=== PATIENT | male | born 1975 | race Caucasian/White ===

== ENCOUNTER 2023-06-13 09:12 | Observation (INO) ==
--- NOTE | 2023-05-18 10:24 | PAT Medication Instructions ---
Medication Instructions Date of Service May 18, 2023 Home Medications baclofen 10 mg tablet 10 mg PO DAILY PRN bupropion HCl 150 mg tablet,12 hr sustained-release (Wellbutrin SR) 150 mg PO BID gabapentin 400 mg capsule 400 mg PO TID meloxicam 15 mg tablet 15 mg PO QAM omeprazole 20 mg tablet,delayed release 20 mg PO QAM Continue as directed baclofen 10 mg tablet 10 mg PO DAILY PRN(if needed) ASK your surgeon for instructions meloxicam 15 mg tablet 15 mg PO QAM Take morning of surgery With a small sip of water, OTHERWISE NOTHING TO EAT OR DRINK AFTER MIDNIGHT: bupropion HCl 150 mg tablet,12 hr sustained-release (Wellbutrin SR) 150 mg PO BID gabapentin 400 mg capsule 400 mg PO TID omeprazole 20 mg tablet,delayed release 20 mg PO QAM Take evening before surgery bupropion HCl 150 mg tablet,12 hr sustained-release (Wellbutrin SR) 150 mg PO BID gabapentin 400 mg capsule 400 mg PO TID Other Notes If you have any questions please call us at [phone] or [phone] or [phone] or [phone]
--- NOTE | 2023-05-24 09:09 | Anesthesiology Consultation ---
Date of Service May 24, 2023 Assessment & Plan (1) Encounter for pre-operative examination: - Infectious disease screening: Per assessment on 05/24/23: No known infectious disease contacts or current infectious disease symptoms. No noted recent Covid positive test result. - Patient acceptable risk for surgery pending surgeon-ordered PCP preop evaluation (SAUNDRA Napier, appt 05/25). Chart Review Chart Review: Patient seen in Pre Admission Testing Teaching & Discussion Pre-Anesthesia Teaching/Discussion Notes: Instructed NPO after midnight before surgery,except medications with 15 cc of water. Medication instructions provided according to the PAT guidelines. History Surgery Operation Date: 06/05/23 07:45 Proposed Procedures p L5-S1 Decompression and Fusion, Spinal Cord Monitoring - Kalyan Danielson, Height/Weight Height: 5 ft 11 in Weight: 109.4 kg Allergies Allergy/AdvReac Type Severity Reaction Status Date / Time No Known Allergies Allergy Verified 05/17/23 11:50 Medications Home Medications Medication Instructions Recorded Confirmed Last Taken baclofen 10 mg tablet 10 mg PO DAILY PRN Spasms 05/17/23 05/17/23 Unknown bupropion HCl 150 mg tablet,12 hr 150 mg PO BID 05/17/23 05/17/23 Unknown sustained-release (Wellbutrin SR) gabapentin 400 mg capsule 400 mg PO TID 05/17/23 05/17/23 Unknown meloxicam 15 mg tablet 15 mg PO QAM Pain 05/17/23 05/17/23 Unknown omeprazole 20 mg tablet,delayed 20 mg PO QAM 05/17/23 05/17/23 Unknown release Past Medical History Medical History Chronic back pain Osteoarthritis Overactive bladder no longer on meds GERD (gastroesophageal reflux disease) Depression Anxiety History of COVID-19 10/2022 Sleep apnea CPAP (occasional use) Exercise / Class Metabolic Activity III < 4 Walking/Shop/Light housework (one FS (no CP, +mild SOB)) Past Surgical History Surgical History Slow to wake up after anesthesia Hx of elbow surgery right History of arthroscopy R/L shoulders History of carpal tunnel release R/L History of colonoscopy History of tooth extraction Past Anesthesia History No Family Hx of Anesthesia Complications and Other (slow to wake, drowsiness) History of PONV No Hx of PONV and Hx of Motion Sickness (occasional) Social History Smoking Status: Former smoker Do You Dip or Chew Tobacco: No Smoking End Date: Quit 05/03/23 Hx Alcohol Use: No Hx Substance Use: No substance use type: does not use Review of Systems Patient denies chest pain, shortness of breath, fever, chills, cough, wheezing, palpitations. Physical Exam Vital Signs VITALS BP 120/80 P 65 TEMP 98.2 SP02 98%RA RESP 16 PHYSICAL Full cervical extension range of motion. Full TMJ range of motion. TMD 3.5 finger breaths Mallampati Score 3 Dentition: intact Lungs: clear throughout to auscultation Cardiac: regular rate and rhythm, no murmurs noted Spine: normal Carotid arteries: negative bruit Extremities: no LE edema Lab Results Anesthesia Preop Results Results Anesthesia Widget: WBC 6.90 K/ul (4.8-10.8) 05/24/23 Hgb 15.3 g/dl (14.0-18.0) 05/24/23 Hct 44.7 % (42.0-52.0) 05/24/23 Plt 232 K/uL (130-400) 05/24/23 Na 139 mmol/L (136-145) 05/24/23 K 3.9 mmol/L (3.5-5.1) 05/24/23 Cl 104 mmol/L (98-107) 05/24/23 CO2 28 mmol/L (21-32) 05/24/23 BUN 16 mg/dl (6-23) 05/24/23 Creat 0.91 mg/dl (0.6-1.4) 05/24/23 Glucose Level 86 mg/dl (70-99(Fasting)) 05/24/23 PT 11.0 Seconds (9.0-12.0) 05/24/23 PTT 30 Seconds (21-31) 05/24/23 INR 1.0 (0.9-1.1) 05/24/23 Urine Color Dark Yellow 05/24/23 Urine Appearance Clear (Clear) 05/24/23 Urine pH 5.5 (4.5-7.5) 05/24/23 Urine Specific [place] 1.025 (1.000-1.030) 05/24/23 Urine Protein Negative (Negative) 05/24/23 Urine Glucose (UA) Negative (Negative) 05/24/23 Urine Ketones Negative (Negative) 05/24/23 Urine Blood Negative (Negative) 05/24/23 Urine Nitrite Negative (Negative) 05/24/23 Urine Bilirubin Negative (Negative) 05/24/23 Urine Urobilinogen Negative (Negative) 05/24/23 Urine Leukocyte Esterase Negative (Negative) 05/24/23 Blood Type A Positive 05/24/23 Antibody Screen NEGATIVE 05/24/23 Testing Electrocardiogram Date: 10/13/22 NSR at 73bpm. iRBBB. Stress Test Date: 10/13/22 Type: exercise Negative exercise stress echo for ischemia at 61% MPHR. Cannot exclude ischemia at higher heart rates. Nondiagnostic exercise stress EKG for ischemia secondary to failure to achieve 85% MNPG. No significant changes at workload achieved. Poor functional capacity. No significant valvular disease. Other Testing CT Chest Date: 10/31/22 No suspicious lesion. Airways: Within normal limits. Lungs: Within normal limits.
[~2023-06-13 09:12] MED LIST: ACETAMINOPHEN 500 MG TAB PO SCH; GABAPENTIN 900 MG DOSE PO SCH; LR 15ML/HR IV SCH; LR 60ML/HR IV SCH; ceFAZolin 2000MG 2,000 MG/15 ML SYR IV SCH
[2023-06-13] MEDS ORDERED: LR 60ML/HR IV SCH (09:15)
[2023-06-13] MEDS ORDERED: LR 15ML/HR IV SCH (09:15)
[2023-06-13] MEDS ORDERED: ATROPINE SULFATE 0.1 MG/ML 10ML SYR IV PRN (10:22)
[2023-06-13] MEDS ORDERED: HYDROmorphone INJ 2 MG/ML SYR/VIAL IV PRN (10:22)
[2023-06-13] MEDS ORDERED: PROMETHAZINE HCL 12.5 MG in SODIUM CHLORIDE 0.9% 50 ML IV PRN ×2 (10:22→14:16)
[2023-06-13] MEDS ORDERED: ePHEDrine sulfate 50 MG/ML AMP IV PRN (10:22)
[2023-06-13] MEDS ORDERED: ONDANSETRON INJ 2 MG/ML 2 ML VIAL IV PRN ×2 (10:22→14:16)
--- NOTE | 2023-06-13 10:25 | History & Physical Bridge Note ---
Date of Service June 13, 2023 History & Physical Bridge Note I have examined the patient, reviewed the History & Physical and in the interval since the performance of the History & Physical I have noted the following changes of clinical significance: no changes noted
--- NOTE | 2023-06-13 10:28 | History & Physical Report ---
Date of Service June 13, 2023 Assessment & Plan (1) Neurogenic claudication due to lumbar spinal stenosis: Plan: Decompression and fusion L5-S1 History of Present Illness Chief Complaint: back and leg pain Primary Care Provider: NO PCP This is a 48-year-old male who presents with chronic persistent back and leg pain after failing since course of nonoperative care is here for surgical intervention. Allergies Allergy/AdvReac Type Severity Reaction Status Date / Time celecoxib [From Celebrex] Allergy Unknown Hives Verified 06/13/23 09:33 Home Medications Medication Instructions Recorded Confirmed Type bupropion HCl 150 mg tablet,12 hr 150 mg PO BID 05/17/23 06/13/23 History sustained-release (Wellbutrin SR) gabapentin 400 mg capsule 600 mg PO TID 05/17/23 06/13/23 History meloxicam 15 mg tablet 15 mg PO QAM Pain 05/17/23 06/13/23 History omeprazole 20 mg tablet,delayed 20 mg PO QAM 05/17/23 06/13/23 History release Past Med/Surg History Medical History Chronic back pain Osteoarthritis Overactive bladder no longer on meds GERD (gastroesophageal reflux disease) Depression Anxiety History of COVID-19 10/2022 Sleep apnea CPAP (occasional use) Surgical History Slow to wake up after anesthesia Hx of elbow surgery right History of arthroscopy R/L shoulders History of carpal tunnel release R/L History of colonoscopy History of tooth extraction Social History Smoking Status: Former smoker Smoking End Date: Quit 05/03/23; Second Hand Exposure: No; Do You Dip or Chew Tobacco: No; Tobacco Cessation Education Requested by Patient: No Hx Alcohol Use: No Hx Substance Use: No Preferred Language: Dutch Communication Ability: Effective Strategic Development Manager Required: No Beliefs That Will Affect Care: None Current Living Situation: Spouse Other Information That Helps Us Care for You: No Feels Safe at Home: Yes Safety Concerns: Feels Safe At This Time Assistive Devices: CPAP and Glasses Physical Exam Physical Exam: patient is alert and oriented heart regular lungs clear Results & Data Results & Data Vital Signs (Past 12 Hours) Vital Signs Temp Pulse Resp BP Pulse Ox O2 Del Method 06/13/23 09:31 36.7 C 82 20 127/81 97 Room Air
[2023-06-13] MEDS ORDERED: ceFAZolin 330 MG/ML 1 GM VIAL ONE (10:35)
[2023-06-13] MEDS ORDERED: BUPIVACAINE/EPINEPHRINE 0.5% MPF 1:200,000 30 ML VIAL ONE (10:36)
[2023-06-13] MEDS ORDERED: fentaNYL citrate PF 100 MCG/2 ML VIAL ONE (10:39)
[2023-06-13] MEDS ORDERED: MIDAZOLAM HCL 1 MG/ML 2ML VIAL ONE (10:39)
[2023-06-13] MEDS ORDERED: LIDOCAINE 2% 2 ML VIAL/AMP(20MG/ML) INFIL ONE (10:40)
[2023-06-13] MEDS ORDERED: ONDANSETRON INJ 2 MG/ML 2 ML VIAL ONE (10:40)
[2023-06-13] MEDS ORDERED: GLYCOPYRROLATE 0.2 MG/ML VIAL ONE ×2 (10:40→12:23)
[2023-06-13] MEDS ORDERED: DEXAMETHASONE SOD INJ 4 MG/ML VIAL ONE (10:40)
[2023-06-13] MEDS ORDERED: diphenhydrAMINE 50 MG/ML VIAL ONE (10:40)
[2023-06-13] MEDS ORDERED: PROPOFOL IV EMULSION 10 MG/ML 20 ML VIAL IV ONE (10:40)
[2023-06-13] MEDS ORDERED: FLOSEAL HEMOSTATIC MATRIX 10ML TOP ONE ×2 (11:24→12:30)
[2023-06-13] MEDS ORDERED: SUGAMMADEX SODIUM 200 MG/2 ML VIAL IV ONE (11:26)
[2023-06-13] MEDS ORDERED: HYDROmorphone INJ 2 MG/ML SYR/VIAL ONE (12:11)
[2023-06-13] MEDS ORDERED: NEOSTIGMINE METHYLSULFATE 1 MG/ML 10ML VIAL ONE (12:23)
--- NOTE | 2023-06-13 12:39 | Operative Report ---
Post Operative Report Pre & Post Diagnosis Operation Date: 06/13/23 10:45 Pre-Op Diagnosis: Lumbar disc herniation with radiculopathy. Post-Op Diagnosis: Lumbar disc herniation with radiculopathy. I identified the patient and participated in the time-out.: Yes Procedure Operation Date: 06/13/23 10:45 Actual Procedures #1 lumbar decompression bilateral medial facetectomies and foraminotomies L4-5 L5-S1. #2 posterior spinal fusion L5-S1. #3 placed posterior instrumentation L5-S1. #4 interbody fusion L5-S1. #5 placement spiral 14 x 26 mm cage x 2 L5- S1. #6 placement locally harvested morselized autograft in the posterior gutters. #7 placement of Morpheus bone graft interbody space and Koros bone graft in the posterior lateral gutters. Surgeon Kalyan Danielson, DO Electronic Musical Instrument Repairer Radha Fay Estimated Blood Loss 300 Findings See Below The patient is 5 foot 11 weighing over 111 kg with a BMI in excess of 34. The patient body habitus did contribute to significant technical difficulty involving positioning exposure and the procedure itself. This at least 50% increased operative time. Specimens None Indications This is a 48-year-old male who presents above-mentioned diagnosis of failing since course of nonoperative care is here for surgical invention. Description of Procedure Patient was met with identified informed consent obtained. Patient was then taken to the operative suite underwent patient placed in a prone position on the Abran table on top of the Rosendo frame. All bony promises well-padded eyes inspected to ensure no external pressure placed upon the. This point lumbar spine was prepped and draped in a sterile fashion. Sharp dissection with assistance of Bovie cautery performed after exposing the lamina and transverse processes of L5 and sacral ala bilaterally. From caudal to cephalad fashion complete laminectomy of L5 partial laminectomy L4 was performed including bilaterally facetectomies and foraminotomies addressing severe spinal stenosis. Pedicle screws were then placed and L5-S1 bilaterally with assistance of fluoroscopy and appropriate size molly placed. Bilateral transforaminal approach on the right discectomy L5-S1 was performed endplates guarded to subcortical bleeding bone and a 14 x 26 mm Spira cage filled with Morpheus tapped in position. Then proceeded to the left transforaminal region and L5-S1 completed discectomy curetted the endplates to subcortical bleeding bone and placed a second 14 x 26 mm Spira cage filled with Morpheus bone graft into position. The rods were then compressed locked in final position bilaterally for the transverse processes of L5 and sacral ala burred to subcortical bleeding bone. Koros local autograft was then placed in the posterior lateral gutters. 15 round DELANEY inserted. Incision was then closed with 1 Vicryl fascia 2-0 Vicryl subcutaneously and 4-0 Monocryl for fascial closure. Steri-Strips sterile dressing placed. Patient taken to PACU stable condition. Please note spinal cord monitoring was utilized at the procedure no changes noted. Chichi Fay was present at the entire surgery from the patient positioning complex portion of the surgery and final skin closure. I attest to the content of the Intraoperative Record and any orders documented therein. Any exceptions are noted below.
[2023-06-13] MEDS: fentaNYL citrate PF 100 MCG/2 ML VIAL IV PRN ×2 (13:29→13:34)
--- NOTE | 2023-06-13 13:57 | Fluoroscopy Report ---
INTRAOPERATIVE RADIOGRAPHS CLINICAL HISTORY: L5-S1 spinal fusion. Fluoro time: 20 seconds Ka,r: 18.46 mGy FINDINGS: 2 spot fluoroscopic views of the lumbar spine are presented. There has been discectomy at L 5-S1 with laminectomy and posterior fusion at this level. Interpedicular screws are in place. The ort hopedic hardware appears intact. IMPRESSION: Intraoperative images from lumbar spinal fusion surgery as above. Electronically signed by: Aleksander Martin M.D. 06/13/2023 1:56 PM
[2023-06-13] MEDS ORDERED: ALUMINUM/MAGNESIUM SUSP 30 ML UDC PO PRN (14:16)
[2023-06-13] MEDS ORDERED: bisacodyL 10 MG SUPP PR PRN (14:16)
[2023-06-13] MEDS ORDERED: ONDANSETRON 4 MG OD TAB PO PRN (14:16)
[2023-06-13] MEDS ORDERED: hydrOXYzine HCl 25 MG TAB PO PRN (14:16)
[2023-06-13] MEDS ORDERED: ACETAMINOPHEN 500 MG TAB PO PRN (14:16)
[2023-06-13] MEDS ORDERED: DO NOT ADMINISTER FLU VACCINE PRN (14:16)
[2023-06-13] MEDS ORDERED: HYDROmorphone INJ 0.5 MG/0.5 ML SYR IV PRN (14:16)
[2023-06-13] MEDS ORDERED: traMADol HCL 50 MG TABLET PO PRN (14:16)
[2023-06-13] MEDS ORDERED: METOCLOPRAMIDE HCL INJ 5 MG/ML 2 ML VIAL IV PRN (14:16)
[2023-06-13] MEDS ORDERED: SOD PHOSPHATE/SOD BIPHOSPHATE ENEMA 132 ML BTL PR PRN (14:16)
[2023-06-13] MEDS ORDERED: DO NOT ADMINISTER PNEUMOCOCCAL VACCINE PRN (14:16)
[2023-06-13] MEDS ORDERED: NALOXONE HCL 0.4 MG/1 ML VIAL/CARP IV PRN (14:16)
[2023-06-13] MEDS ORDERED: LORazepam 0.5 MG in SYRINGE 0.25 ML IV PRN (14:16)
[2023-06-13] MEDS ORDERED: LORazepam 0.5 MG TAB PO PRN (14:16)
[2023-06-13] MEDS ORDERED: diphenhydrAMINE Capsule 25 MG CAP PO PRN (14:16)
[2023-06-13] MEDS ORDERED: FAMOTIDINE 20 MG TAB PO PRN (14:16)
[2023-06-13] MEDS ORDERED: MAGNESIUM HYDROXIDE SUSP 30 ML UDC PO PRN (14:16)
[2023-06-13] MEDS ORDERED: ACETAMINOPHEN 1,000 MG/100 ML VIAL IV PRN (14:16)
--- NOTE | 2023-06-13 15:05 | Anesthesiology Progress Note ---
Date of Service June 13, 2023 Anesthesia Post Procedure Vital Signs Vital Signs: Temp Pulse Pulse Resp BP Pulse Ox O2 Del Method 06/13/23 14:45 36.5 C 76 16 155/78 H 96 Nasal Cannula 06/13/23 14:18 36.7 C 76 15 134/78 96 Room Air 06/13/23 14:06 36.6 C 06/13/23 13:55 93 H 13 140/93 93 Nasal Cannula 06/13/23 13:45 89 18 158/94 H 93 Room Air 06/13/23 13:35 36.3 C L 71 16 133/93 93 Oxymask 06/13/23 13:25 80 16 139/96 97 Oxymask 06/13/23 13:15 74 16 158/97 H 96 Oxymask 06/13/23 13:05 75 18 162/92 H 100 Oxymask 06/13/23 12:59 36.0 C L 88 18 165/113 H 99 Oxymask 06/13/23 09:31 36.7 C 82 20 127/81 97 Room Air O2 Flow Rate 06/13/23 14:45 2 06/13/23 14:18 06/13/23 14:06 06/13/23 13:55 2 06/13/23 13:45 0 06/13/23 13:35 4 06/13/23 13:25 4 06/13/23 13:15 4 06/13/23 13:05 9 06/13/23 12:59 9 06/13/23 09:31 Pain Intensity Lower Back: Pain Intensity: 9 Transfer of Care Handoff Completed per policy Notes Mental Status: alert / awake / arousable and participated in evaluation Patient Amnestic to Procedure: Yes Nausea / Vomiting: adequately controlled Pain: adequately controlled Airway Patency, RR, SpO2: stable & adequate BP & HR: stable & adequate Hydration State: stable & adequate Anesthetic Complications: no major complications apparent and Pt Satisfied with anesthetic care
--- OUTSIDE RECORDS SUMMARY | 2023-06-13 15:14 | External Medical Summary | Summary of Care ---
Author Name Unknown Organization [facility] Address [address] [facility] [facility] [place] [address] Phone [phone] Care Team Providers Care Costume Shop Coordinator Name Role Phone Tasia Harding PA-C Primary Care Provider [phone] Reason for Visit * Reason Onset Date Comments Test Results 03/13/2023 Encounter Details Date Type Department Care Team (Late st Contact Info) Description [facility] [place] [phone] Tasia Harding PA-C [address] [facility] [place] [id number] Test Results Allergies Active Allergy Reactions Criticality Noted Date Comments Paroxetine Hcl 03/17/2011 Delayed ejaculation Sertraline Hcl Diarrhea 04/17/2011 Patient has been taking for 3 weeks as of 06/13/16 with no problems documented as of this encounter (statuses as of 06/12/2023) Medications Medication Sig Dispensed Refills Start Date End Date Status CPAP every night at bedtime. Auto 5-15 cm 0 Active Omeprazole 20 MG Oral Capsule Delayed Release (PriLOSEC)Indications :Gastro-esophageal reflux disease without esophagitis TAKE 1 CAPSULE BY MOUTH EVERY DAY 90 Capsule 3 02/06/2023 Active Hospital, Clinic, or Other Facility Administered Medication Ordered Dose Route Frequency Start Date End Date Status Albuterol Sulfate (Proventil) (2.5 MG/3ML) 0.083% inhalation solution 2.5 mgIndications:Dyspnea on exertion,Chronic chest pain 2.5 mg NEBULIZER ONCE PRN 10/18/2022 10/18/2023 Active documented as of this encounter (statuses as of 06/12/2023) Active Problems Problem Noted Date Diagnosed Date Bipolar 2 disorder 06/06/2022 Spinal stenosis of lumbar re gion with neurogenic claudication 10/29/2020 DDD (degenerative disc disease), lumbar 04/23/20 Obesity, Class I, BMI 30.0-34.9 (see actual BMI) 04/23/2020 Major depressive disorder, recurrent episode, mo derate 07/09/2019 Gastroesophageal reflux disease 09/17/2018 GERMÁN (obstructive sleep apnea) 07/13/2016 Bipolar I disorder, most recent episode mixed, m oderate 05/16/2016 Sprain of wrist 07/09/2014 Tobacco use disorder 02/26/2013 Adjustment disorder with depressed mood 09/30/19 11 Overview: : increased to 40mg/d Citalopram 20mg/d started 07/2010: Devi documented as of this encounter (statuses as of 06/12/2023) Resolved Problems Problem Noted Date Diagnosed Date Resolved Date Prediabetes 10/09/2018 02/28/2019 Mixed sleep apnea 06/13/2016 07/13/2016 Memory loss 08/25/2015 06/13/2016 Pain in wrist 04/29/2015 02/10/2021 Disorder of wrist joint 04/16/201501/14 Overweight (BMI 25.0-29.9) 07/20/2010 1 06/24/2019 Obesity, BMI not known 01/13/200507/20 BACKACHE NOS 01/13/2005 02/28/2019 Overview: Spinal injections by Dr. Patel 2011 not effective MRI 06/2011: Lumbar spondylitic changes notable at L4-5 for degenerative disk disease. Physical therapy 01/2011 not effective Chronic back pain ever since back injury 1996 - lifting injury documented as of this encounter (statuses as of 06/12/2023) Immunizations Name Administration Dates Next Due Pneumococcal Polysaccharide PPV23 (Pneumovax) 02/04/2016 Seasonal Influenza, PF, 6 M & above, IM , (FluLaval or Fluzone) 01/29/2020,02/14/2019 Seasonal Influenza, Quadriva lent, No Preserve, IM 02/04/2016 Seasonal Influenza, Split, I IV3, With Preserve, Inj 01/26/2015,02/12/2014,02/20/2013,02/28,02/17/2011 TD, Preservative Free 05/19/2005 TDAP (age 10 and older)(Boostrix) 08/26/2016 TDAP (age 11 and older)(Adacel) 11/13/2011 documented as of this encounter Social History Tobacco Use Types Packs/Day Years Used Date Smoking Tobacco: Every Day Cigarettes 1 19 Started: 1993; Last attempted to quit: 11/14/2021 Smokeless Tobacco: Never Alcohol Use Standard Drinks/Week Comments No 0.8 (1 standard drin k = 0.6 oz pure alcohol) used to drink his pain away quit 2009 PHQ-2 Answer Date Recorded PHQ Adult Total Score 19 05/25/2023 Hunger Vital Sign Answer Date Recorded Within the past 12 months, y ou worried that your food would run out before you got the money to buy more. Never true 06/06/19 23 Within the past 12 months, t he food you bought just didn't last and you didn't have money to get more. Never true 06/06/2022 Sex and Gender Information Value Date Recorded Sex Assigned at Male 09/03/2018 9:05 AM EDT Gender Identity Male 09/03/2018 9:05 AM EDT Sexual Orientation Straight 09/03/2018 9: 05 AM EDT Job Start Date Occupation Industry Not on file Not on file Not on file documented as of this encounter Miscellaneous Notes * Telephone Encounter - Marisela Yeung CMA - 03/13/2023 12:23 PM EDT Hematocrit slightly elevated, otherwise labs look great. Covid not impacting heart or causing bloodclot. Pt informed of the above result note on labs from 03/01/[address] Edmond. Pt verbalized understanding. No further questions. * Telephone Encounter - Kiara Acuna OSA - 03/13/2023 12:17 PM EDT Who is Requesting Test Results: Patient Primary Care Provider : Tasia Harding PA-C Tests Results Requested : LAbs Date of Test : 03/01/23 Location of Test: [facility] Ordering Provider: Dr Edmond Callback Number: [phone] Patient has been made aware that the turnaround time for test results are typically as follows: Laboratory results = within 2 days Urine Cultures = within 2-3 days depending on growth within the culture Pathology results (biopsy results/PAP) = 1-2 weeks Radiology results = within 1 week Cologuard results = within 2 weeks from the shipment date COVID testing = results are on average 7 days documented in this encounter Plan of Treatment Upcoming Encounters Date Type Department Care Team (Late st Contact Info) Description 07/24/2023 2:40 PM EDT Office Visit Sleep Disorders, [address] [place] [address] Elizabeth Aparicio MD [address] [place] [address] Scheduled Procedures Name Priority Associated Diagnoses Date/Ti me COLONOSCOPY FLEXIBLE PROXIMA L DIAGNOSTIC Recall Screening for colon cancer Health Maintenance Due Date Last Done Comments Hepatitis B (1 of 3 - 3-dose series) 1975 COVID-19 Vaccine (#1) 1975 Cologuard 2020 Fecal Occult Blood Test 2020 Sigmoidoscopy 2020 Influenza Vaccine (FLU shot) (#1) 2023 01/29/2020, 02/14/2019, 02/04/2016, Additional history exists Depression, Most Recent Score >= 10 (will fire each visit until score < 10) 05/26/2023 05/25/2023 Diabetes Screening 05/24/2026 05/24/2023, 1 , 10/13/2022, Additional history exists DTaP,Tdap,and Td Vaccines (3 - Td or Tdap) 08/26/2026 08/26/2016, 11/13/2011, 05/19/2005 Lipid Panel 06/21/2027 06/21/2022, 03/15, 06/23/2016, Additional history exists COLONOSCOPY EVERY 10 YEARS,AGES 18-50 03/15/2032 03/15/2022, 03/15/2022 Colonoscopy 03/15/2032 03/15/2022, 03/15/2022 Colorectal Cancer Screening 03/15/2032 Pneumococcal Vaccine: Pediatrics (0 to 5 Years) and At-Risk Patients (6 to 64 Years) Aged Out 02/04/2016 No longer eligible based on patient's age to complete this topic GARDASIL-HPV IMMUNIZATION SERIES Aged Out No longer eligible based on patient's age to complete this topic MENINGOCOCCAL (MENACTRA/MENVEO) Aged Out No longer eligible based on patient's age to complete this topic documented as of this encounter Medical Devices Not on filedocumented as of this encounter Care Teams Costume Shop Coordinator Relationship Specialty Start Date End Date Tasia Harding PA-C [address] [facility] [place] [id number] PCP - General Physician Professor Of English 12/22/22 documented as of this encounter
--- OUTSIDE RECORDS SUMMARY | 2023-06-13 15:15 | External Medical Summary | Summary of Care ---
Author Name Unknown Organization [facility] Address [address] [place] [address] Phone [phone] Care Team Providers Care Door Captain Name Role Phone Tasia Harding PA-C Primary Care Provider [phone] Reason for Visit * Reason Onset Date Comments Advice 05/30/2023 Encounter Details Date Type Department Care Team (Late st Contact Info) Description 05/30/2023 Telephone Sleep Disorders, [facility] [address] [place] [address] [facility], Nurse Sleep Disorders [address] [place] [address] Advice Allergies Active Allergy Reactions Criticality Noted Date Comments Paroxetine Hcl 03/17/2011 Delayed ejaculation Sertraline Hcl Diarrhea 04/17/2011 Patient has been taking for 3 weeks as of 06/13/16 with no problems documented as of this encounter (statuses as of 05/30/2023) Medications Medication Sig Dispensed Refills Start Date End Date Status CPAP every night at bedtime. Auto 5-15 cm 0 Active Omeprazole 20 MG Oral Capsule Delayed Release (PriLOSEC)Indications :Gastro-esophageal reflux disease without esophagitis TAKE 1 CAPSULE BY MOUTH EVERY DAY 90 Capsule 3 02/06/2023 Active tiZANidine HCl 4 MG Oral Tablet (Zanaflex) TAKE 1 TABLET BY MOUTH AT BEDTIME NEEDED FOR MUSCLE SPASMS. 30 Tablet 0 04/18/2023 Active Meloxicam 15 MG Oral Tablet (Mobic)Indications:Sp inal stenosis of lumbar region with neurogenic claudication Take 1 Tablet by mouth daily as needed (Pain). 90 Tablet 1 04/18/2023 Active buPROPion HCl ER (SR) 150 MG Oral Tablet Extended Release 12 Hour (Wellbutrin SR)Indications:Tobacc o use disorder,Encounter for smoking cessation counseling Take 1 Tablet by mouth in the morning and 1 Tablet before bedtime. 180 Tablet 1 04/18/2023 Active busPIRone HCl 5 MG Oral Tablet (Buspar)Indications:A nxiety Take 1 Tablet by mouth in the morning and 1 Tablet before bedtime. 30 Tablet 0 05/25/2023 Active Gabapentin 600 MG Oral Tablet (Neurontin)Indication s:Spinal stenosis of lumbar region with neurogenic claudication Take 1 Tablet by mouth in the morning and 1 Tablet at noon and 1 Tablet before bedtime. 90 Tablet 5 05/25/2023 Active Hospital, Clinic, or Other Facility Administered Medication Ordered Dose Route Frequency Start Date End Date Status Albuterol Sulfate (Proventil) (2.5 MG/3ML) 0.083% inhalation solution 2.5 mgIndications:Dyspnea on exertion,Chronic chest pain 2.5 mg NEBULIZER ONCE PRN 10/18/2022 10/18/2023 Active documented as of this encounter (statuses as of 05/30/2023) Active Problems Problem Noted Date Diagnosed Date Bipolar 2 disorder 06/06/2022 Spinal stenosis of lumbar re gion with neurogenic claudication 10/29/2020 DDD (degenerative disc disease), lumbar 04/23/20 20 Obesity, Class I, BMI 30.0-34.9 (see actual [...] as of this encounter (statuses as of 05/30/2023) Resolved Problems Problem Noted Date Diagnosed Date [...] as of this encounter (statuses as of 05/30/2023) Immunizations Name Administration Dates Next Due Pneumococcal [...] Types Packs/Day Years Used Date Smoking Tobacco: Former Cigarettes 1 19 1 05/21/1992 - 05/03/2023 Smokeless Tobacco: Never Alcohol Use Standard Drinks/Week [...] as of this encounter Miscellaneous Notes * Addendum Note - Markel Box MD - 05/30/2023 4:06 PM ESTAddended by: MARKEL BOX on: 05/30/2023 04:06 PM Modules accepted: Orders * Telephone Encounter - Teri Stein OSA - 05/30/2023 2:35 PM EST Patient recently had CPAP pressures changed to 10-20 but he states that it is now too high and it blows the mask off of his face. Asking if the pressure could be lowered? DME: P Thank you! documented in this encounter Plan of Treatment Upcoming Encounters Date Type Department Care Team (Late st Contact Info) Description 07/24/2023 2:40 PM EDT Office Visit Sleep Disorders, [address] [place] [address] [facility] [address] [facility] [place] [id number] Scheduled Procedures Name Priority Associated Diagnoses Date/Ti [...] Not on filedocumented as of this encounter Visit Diagnoses Diagnosis GERMÁN (obstructive sleep apnea)- Primary Obstructive sleep apnea (adult) (pediatric) documented in this encounter Care Teams Door Captain Relationship Specialty Start Date End Date Tasia Harding PA-C [address] [facility] [place] [address] PCP - General Physician Press Worker Helper 12/22/22 documented as of this encounter
--- OUTSIDE RECORDS SUMMARY | 2023-06-13 15:15 | External Medical Summary | Summary of Care ---
Author Name Unknown Organization [facility] Address [address] [facility] [place] [address] Phone [phone] Care Team Providers Care Home Designer Name Role Phone Tasia Harding PA-C Primary Care Provider [phone] Reason for Visit * Reason Onset Date Comments Test Results 05/27/202306/01 FYI 05/27/2023 Encounter Details Date Type Department Care Team (Late st Contact Info) Description 05/27/2023 [facility] [address] [facility] [place] [address] Chrissy Talley MD [address] [facility] [place] [address] Test Results (06/01); FYI Allergies Active Allergy Reactions Criticality Noted Date Comments Paroxetine Hcl 03/17/2011 Delayed ejaculation Sertraline Hcl Diarrhea 04/17/2011 Patient has been taking for 3 weeks as of 06/13/16 with no problems documented as of this encounter (statuses as of 06/01/2023) Medications Medication Sig Dispensed Refills Start Date End Date Status CPAP every night at bedtime. Auto 5-15 cm 0 Active Omeprazole 20 MG Oral Capsule Delayed Release (PriLOSEC)Indicati ons:Gastro-esophag eal reflux disease without esophagitis TAKE 1 CAPSULE BY MOUTH EVERY DAY 90 Capsule 3 02/06/2023 Active tiZANidine HCl 4 MG Oral Tablet (Zanaflex) TAKE 1 TABLET BY MOUTH AT BEDTIME NEEDED FOR MUSCLE SPASMS. 30 Tablet 0 04/18/2023 Active Meloxicam 15 MG Oral Tablet (Mobic)Indications :Spinal stenosis of lumbar region with neurogenic claudication Take 1 Tablet by mouth daily as needed (Pain). 90 Tablet 1 04/18/2023 Active buPROPion HCl ER (SR) 150 MG Oral Tablet Extended Release 12 Hour (Wellbutrin SR)Indications:Tob acco use disorder,Encounter for smoking cessation counseling Take 1 Tablet by mouth in the morning and 1 Tablet before bedtime. 180 Tablet 1 04/18/2023 Active busPIRone HCl 5 MG Oral Tablet (Buspar)Indication s:Anxiety Take 1 Tablet by mouth in the morning and 1 Tablet before bedtime. 30 Tablet 0 05/25/2023 Active Gabapentin 600 MG Oral Tablet (Neurontin)Indicat ions:Spinal stenosis of lumbar region with neurogenic claudication Take 1 Tablet by mouth in the morning and 1 Tablet at noon and 1 Tablet before bedtime. 90 Tablet 5 05/25/2023 Active Finasteride 5 MG Oral Tablet (Proscar) Take 1 Tablet by mouth in the morning. 90 Tablet 6 11/16/2022 05/29/2023 Discontinued (Patient preference/d iscontinuati on) Tamsulosin HCl 0.4 MG Oral Capsule (Flomax) Take 1 Capsule by mouth in the morning. 90 Capsule 0 01/26/2023 05/29/2023 Discontinued (Patient preference/d iscontinuati on) Hospital, Clinic, or Other Facility Administered Medication Ordered Dose Route Frequency Start Date End Date Status Albuterol Sulfate (Proventil) (2.5 MG/3ML) 0.083% inhalation solution 2.5 mgIndications:Dyspnea on exertion,Chronic chest pain 2.5 mg NEBULIZER ONCE PRN 10/18/2022 10/18/2023 Active documented as of this encounter (statuses as of 06/01/2023) Active Problems Problem Noted Date Diagnosed Date [...] as of this encounter (statuses as of 06/01/2023) Resolved Problems Problem Noted Date Diagnosed Date [...] as of this encounter (statuses as of 06/01/2023) Immunizations Name Administration Dates Next Due Pneumococcal [...] encounter Miscellaneous Notes * Telephone Encounter - Chrissy Talley MD - 06/01/2023 12:28 PM EST Note addended: patient is cleared for surgery. Please fax to ortho * Telephone Encounter - Lauren Orta LPN - 06/01/2023 11:[address] Talley for pre-op, outside labs are in epic. Please advise. * Telephone Encounter - Latisha Manuel OSA - 06/01/2023 8:49 AM EST Chanel from [facility] called back to advise fax from yesterday was incomplete and clearance is still "pending test results" This is for a procedure scheduled for 06/05 Please refax with all necessary info [phone] Office can be reached at [phone] with any questions or concerns regarding this request or if unable to assist Thank you * Telephone Encounter - Twila Chakraborty MED ASSIST - 05/31/2023 10:18 AM EST Faxed as requested * Telephone Encounter - Karen Robins OSA - 05/31/2023 8:33 AM EST Chanel from [facility] calling as they need the clearance for surgery on 06/05 to be faxed to them at [phone]. Please call if there is any issues. * Telephone Encounter - Flora Guillaume OSA - 05/28/2023 9:07 AM EST Spoke to [facility] who will be faxing records requested, please place results on Dr Talley's desk when they are received. Thank you * Telephone Encounter - Chrissy Talley MD - 05/27/2023 3:38 PM EST Please get preop labs/test results (done at [facility] last week) and place it on my desk documented in this encounter Plan of Treatment Upcoming Encounters Date Type Department Care Team (Late st Contact Info) Description 07/24/2023 2:40 PM EDT Office Visit Sleep Disorders, [facility] [address] [place] [address] Elizabeth Aparicio MD [address] [facility] [place] [address] Scheduled Procedures Name Priority Associated [...] filedocumented as of this encounter Care Teams Home Designer Relationship Specialty Start Date End Date Tasia Harding PA-C [address] [place] [address] PCP - General Physician Clarifier 12/22/22 documented as of this encounter
--- OUTSIDE RECORDS SUMMARY | 2023-06-13 15:15 | External Medical Summary | Summary of Care ---
Author Name Unknown Organization [facility] Address [address] [facility] [place] [address] Phone [phone] Care Team Providers Care Rail Track Maintainer Name Role Phone Tasia Harding PA-C Primary Care Provider [phone] Encounter Details Date Type Department Care Team (Late st Contact Info) Description 05/24/2023 Result Scan Unspecified Department <No scans attached> Allergies Active Allergy Reactions Criticality Noted Date [...] before bedtime. 180 Tablet 1 04/18/2023 Active Hospital, Clinic, or Other Facility Administered [...] on file documented as of this encounter Plan of Treatment Upcoming Encounters Date Type Department Care Team (Late st Contact Info) Description 07/24/2023 2:40 PM EDT Office Visit Sleep Disorders, [address] [place] [address] Elizabeth Aparicio MD [address] [place] [address] Scheduled Procedures Name Priority Associated [...] Not on filedocumented as of this encounter Procedures Procedure Name Priority Date/Time Associated Diagnosis Comments OUTSIDE LAB RESULTS 05/24/2023 documented in this encounter Results * OUTSIDE LAB RESULTS (05/24/2023) 05/24/2023 No Physician Data Unknown LABORATORY documented in this encounter Care Teams Rail Track Maintainer Relationship Specialty Start Date End Date Tasia Harding PA-C [address] [place] [id number] PCP - General Physician Evp Operations 12/22/22 documented as of this encounter
--- OUTSIDE RECORDS SUMMARY | 2023-06-13 15:15 | External Medical Summary | Summary of Care ---
Author Name Unknown Organization [facility] [address] [address] Phone [phone] Care Team Providers Care Wildlife Biology Technician Name Role Phone Tasia Harding PA-C Primary Care Provider [phone] Reason for Visit * Reason Comments pre-op exam * Auth/Cert Specialty Diagnoses / Procedures Referred By Controdriguez t Referred To Contact Referral ID Status Reason Start Date Expiration Date Visits Re quested Visits Authorized [id number] Encounter Details Date Type Department Care Team (Late st Contact Info) Description 05/25/2023 1:40 PM EST Office Visit [facility] [address] [place] [id number] Chrissy Talley MD [address] [place] [phone] Preoperative clearance*; DDD (degenerative disc disease), lumbar; Lumbar disc herniation with radiculopathy; Foraminal stenosis of lumbar region; GERMÁN (obstructive sleep apnea); Gastroesophageal reflux disease without esophagitis; Tobacco use disorder; BPH with obstruction/lower urinary tract symptoms; Anxiety; Spinal stenosis of lumbar region with neurogenic claudication Allergies Active Allergy Reactions Criticality Noted Date [...] in the morning. 90 Tablet 6 11/16/2022 4 Discontinue d(Patient preference/ discontinua tion) Tamsulosin HCl 0.4 MG Oral Capsule (Flomax) Take 1 Capsule by mouth in the morning. 90 Capsule 0 01/26/2023 4 Discontinue d(Patient preference/ discontinua tion) Nicotine 21 MG/24HR Transdermal Patch 24 Hour (Nicoderm CQ)Indications:Tob acco use disorder,Encounter for smoking cessation counseling Place 1 Patch over 24 hours topically on the skin in the morning. On upper body/upper arm, change once a day for 6 weeks.. 42 Patch 0 04/18/2023 4 Discontinue d(Patient preference/ discontinua tion) Gabapentin 600 MG Oral Tablet (Neurontin)Indicat ions:Spinal stenosis of lumbar region with neurogenic claudication Take 1 Tablet by mouth in the morning and 1 Tablet at noon and 1 Tablet before bedtime. 90 Tablet 5 04/23/2023 4 Discontinue d(Refill) Hospital, Clinic, or Other Facility Administered Medication [...] 1 05/21/1992 - 05/03/2023 Smokeless Tobacco: Never Tobacco Cessation:Counseling Given: Not Answered Alcohol Use Standard Drinks/Week Comments No 0.8 [...] on file documented as of this encounter Last Filed Vital Signs Vital Sign Reading Time Taken Comments Blood Pressure 118/80 05/25/2023 1:45 PM EST Pulse 68 05/25/2023 1:45 PM EST Temperature 36.8 C (98.3 F) 05/25/2023 1:45 PM ES T Respiratory Rate 16 05/25/2023 1:45 PM EST Oxygen Saturation 96% 05/25/2023 1:45 PM EST Inhaled Oxygen Concentration - - Weight 110.2 kg (243 lb) 05/25/2023 1:45 PM EST Height - - Body Mass Index 33.89 05/15/2023 3:17 PM EST documented in this encounter Progress Notes * Chrissy Talley MD - 05/25/2023 1:54 PM EST Images from the original note were not included. Pre-Operative Medical Evaluation Procedure Information Type of Surgery: spine surgery (L5-S1 TLIF) Referring Physician / Surgeon: ortho/spine Dr. Danielson Date of procedure: 06/05/2023 Brief History of Present Illness: Patient reports chronic back pain and anxiety(prior to surgery) On Wellbutrin for smoking cessation. Review of Systems Constitutional: Negative for activity change, appetite change, chills, fatigue, fever and unexpected weight change. HENT: Negative for congestion, dental problem, ear pain, hearing loss, rhinorrhea, sore throat and trouble swallowing. Eyes: Negative for visual disturbance. Respiratory: Negative for cough, shortness of breath and wheezing. Cardiovascular: Negative for chest pain, palpitations and leg swelling. Gastrointestinal: Negative for abdominal pain, blood in stool, constipation, diarrhea, nausea and vomiting. Endocrine: Negative for polyuria. Genitourinary: Negative for difficulty urinating, dysuria and hematuria. Musculoskeletal: Positive for back pain. Negative for arthralgias. Skin: Negative for rash. Allergic/Immunologic: Negative for environmental allergies and food allergies. Neurological: Negative for dizziness and headaches. RLE numbness Hematological: Negative for adenopathy. Psychiatric/Behavioral: Negative for dysphoric mood and sleep disturbance. The patient is nervous/anxious. Medical History Problem List: Bipolar 2 disorder (HCC) (06/06/2022) Spinal stenosis of lumbar region with neurogenic claudication (2020) DDD (degenerative disc disease), lumbar (04/23/2020) Obesity, Class I, BMI 30.0-34.9 (see actual BMI) (04/23/2020) Major depressive disorder, recurrent episode, moderate (HCC) (2019) Prediabetes (10/09/2018) Gastroesophageal reflux disease (09/17/2018) GERMÁN (obstructive sleep apnea) (07/13/2016) Mixed sleep apnea (06/13/2016) Bipolar I disorder, most recent episode mixed, moderate (HCC) (2016) Memory loss (08/25/2015) Pain in wrist (04/29/2015) Disorder of wrist joint (04/16/2015) Sprain of wrist (07/09/2014) Tobacco use disorder (02/26/2013) Adjustment disorder with depressed mood (09/29/2010) Overweight (BMI 25.0-29.9) (07/20/2010) Obesity, BMI not known (01/13/2005) BACKACHE NOS (01/13/2005) Current Medications Gabapentin 600 MG Oral Tablet (Neurontin), 600 mg, Oral, TID(AM/NOON/HS) buPROPion HCl ER (SR) 150 MG Oral Tablet Extended Release 12 Hour (Wellbutrin SR), 150 mg, Oral, BID(AM/PM) tiZANidine HCl 4 MG Oral Tablet (Zanaflex), 4 mg, Oral, QHS PRN Omeprazole 20 MG Oral Capsule Delayed Release (PriLOSEC), TAKE 1 CAPSULE BY MOUTH EVERY DAY Tamsulosin HCl 0.4 MG Oral Capsule (Flomax), 0.4 mg, Oral, Daily(AM) Finasteride 5 MG Oral Tablet (Proscar), 5 mg, Oral, Daily(AM) CPAP, every night at bedtime. Auto 5-15 cm Meloxicam 15 MG Oral Tablet (Mobic), 15 mg, Oral, Daily PRN Albuterol Sulfate (Proventil) (2.5 MG/3ML) 0.083% inhalation solution 2.5 mg, 2.5 mg Allergies: Paroxetine hcl and Sertraline hcl Past Medical History: has a past medical history of Adjustment disorder with depressed mood, Backache (1996), Bipolar 1 disorder (), DDD (degenerative disc disease), lumbar, Gastroesophageal reflux disease, GERMÁN (obstructive sleep apnea), and Spinal stenosis of lumbar region with neurogenic claudication. Past Surgical History: has a past surgical history that includes carpal tunnel surgery (Right, 2014); shoulder arthroscopysurgery (Right, 05/01/2016); shoulder arthroscopy/decompression (Right, 05/01/2016); shoulder arthroscopy/surgery (Right, 05/01/2016); Inject Dx/Ther Substance Interlaminar Lumbar/Sacral W Image Guide (N/A, 04/30/2017); Inject Dx/Ther Substance Interlaminar Lumbar/Sacral W Image Guide (N/A, 06/18/2017); Inject Dx/Ther Substance Interlaminar Cervical/Thoracic W Image Guide (N/A, 08/03/2017); shoulder arthroscopy surgery (Left, 04/02/2019); shoulder arthroscopy/decompression (Left, 04/02/2019); ne rvous system surgery nec (Left, 04/02/2019); carpal tunnel surgery (Left, 04/02/2019); Inject Dx/Ther Substance Interlaminar Lumbar/Sacral W Image Guide (N/A, 01/01/2020); Inject Dx/Ther Substance Interlaminar Lumbar/Sacral W Image Guide (05/20/2020); Lumbar / Sacral Epidural, single level (07/01/2020); Lumbar / Sacral Epidural, single level (03/17/2021); Lumbar / Sacral Epidural, single level (08/11/2021); Colonoscopy, Diagnostic (Rectum) (N/A, 03/15/2022); and Lumbar / Sacral Epidural, singlelevel (Right, 02/20/2023). Social History: reports that he quit smoking about 3 weeks ago. His smoking use included cigarettes. He started smoking about 30 years ago. He has a 19.00 pack-year smoking history. He has never used smokeless tobacco. He reports that he does not drink alcohol and does not use drugs. Family History: family history includes Cancer in his grandfather (paternal); Heart Disorder in his father; Hypertension in his brother; Liver cancer in his brother; No Past Hx in his mother. Anesthesia History Type of Anesthesia: General Endotracheal Anesthesia reaction: No History of surgical complications: no Personal history of venous thromboembolic disease: no Physical Exam Vitals: 05/25/23 1345 Temp: 36.8 C (98.3 F) Pulse: 68 Resp: 16 SpO2: 96% BP: 118/80 Physical Exam Constitutional: General: He is not in acute distress. Appearance: Normal appearance. HENT: Head: Normocephalic and atraumatic. Right Ear: Tympanic membrane, ear canal and external ear normal. Left Ear: Tympanic membrane, ear canal and external ear normal. Nose: Nose normal. Mouth/Throat: Mouth: Mucous membranes are moist. Pharynx: Oropharynx is clear. Eyes: Conjunctiva/sclera: Conjunctivae normal. Pupils: Pupils are equal, round, and reactive to light. Cardiovascular: Rate and Rhythm: Normal rate and regular rhythm. Pulses: Normal pulses. Pulmonary: Effort: Pulmonary effort is normal. Breath sounds: Normal breath sounds. Abdominal: General: Bowel sounds are normal. There is no distension. Palpations: Abdomen is soft. Tenderness: There is no abdominal tenderness. Musculoskeletal: Cervical back: Neck supple. Lumbar back: Tenderness present. Decreased range of motion. Right lower leg: No tenderness. No edema. Left lower leg: No tenderness. No edema. Skin: General: Skin is warm and dry. Findings: No rash. Neurological: Mental Status: He is alert and oriented to person, place, and time. Psychiatric: Mood and Affect: Mood normal. Behavior: Behavior normal. Labs reviewed and are significant for: labs done at [facility], results are not available today EKG by my review is significant for: 05/29/2023 Normal sinus rhythm, incomplete RBBB Stress ECHO 10/13/2022 Interpretation Summary 1. Negative exercise stress ECHO for ischemia at 61% maximal predicted heart rate. LV become stronger more vigorous with stress. Can not exclude ischemia at higher heart rates. 2. Nondiagnostic exercise stress EKG for ischemia secondary to failure to achieve 85% maximal predicted heart rate. No ischemic change at workload achieved. 3. Poor functional capacity achieving 6 minutes 25 seconds on a standard Ravi protocol. Stress Findings The stress EKG response was normal. Baseline ECG was normal. No symptoms were noted. The stress test was terminated due to fatigue. Heart rate response to stress was normal. Blood pressure response to exercise was hiral Surgical Risk Scoring Revised Cardiac Risk Index (RCRI) High-risk type of surgery (examples include vascular and any open intraperitoneal or intrathoracic procedures): 0=No History of ischemic heart disease (history of myocardial infarction or positive exercise test, current compliant of chest pain considered to be secondary to myocardia ischemia, use of nitrate therapy, or ECG with pathological Q waves; do not count prior coronary revascularization procedure unless one of the other criteria for ischemic heart disease is present): 0=No History of heart failure: 0=No History of cerebrovascular disease: 0=No Diabetes mellitus requiring treatment with insulin: 0=No Preoperative serum creatinine >2.0 mg/dL (177 micromol/L): 0=No Pt has revised cardiac index score of: No Risk Factors- 0.4% (95% CI: 0.1-0.8) Screening for Obstructive Sleep Apnea (STOP-BANG) Known GERMÁN, on CPAP Assessment and Plan 1. Preoperative clearance - patient will be cleared for surgery pending lab results Addendum 06/01/2023: labs reviewed, stable Patient is cleared for surgery 2. DDD (degenerative disc disease), lumbar 3. Lumbar disc herniation with radiculopathy 4. Foraminal stenosis of lumbar region 5. GERMÁN (obstructive sleep apnea) 6. Gastroesophageal reflux disease without esophagitis 7. Tobacco use disorder 8. BPH with obstruction/lower urinary tract symptoms 9. Anxiety - busPIRone HCl 5 MG Oral Tablet (Buspar); Take 1 Tablet by mouth in the morning and 1 Tablet before bedtime. Dispense: 30 Tablet; Refill: 0 (added) 10. Spinal stenosis of lumbar region with neurogenic claudication - Gabapentin 600 MG Oral Tablet (Neurontin); Take 1 Tablet by mouth in the morning and 1 Tablet at noon and 1 Tablet before bedtime. Dispense: 90 Tablet; Refill: 5 Functional Assessment They are able to walk up a flight of stairs, walk two blocks at a moderate pace, do heavy house work like vacuuming, and grocery shop. The patient's functional status is good (greater than 4 METS). 1 MET: 4 METs: 4-10 METs: Can take care of self, such as eat, dress or use the toilet. Can walk to block or go up a flight of steps. Can do heavy house work. Surgical Risk Assessment Patient is low medical risk for the listed procedure. Medication adjustments: no Additional consults or testing: no documented in this encounter Nursing Notes * [facility]stud[facility], [facility] - 05/25/2023 1:47 PM EST Chief Complaint Patient presents with pre-op exam documented in this encounter Plan of Treatment Upcoming Encounters Date Type Department Care Team (Late st Contact Info) Description 07/24/2023 2:40 PM EDT Office Visit Sleep Disorders, [facility] [address] [address] Elizabeth Aparicio MD [address] [place] [address] Scheduled Procedures Name Priority Associated Diagnoses [...] as of this encounter Visit Diagnoses Diagnosis Preoperative clearance- Primary Preoperative examination, unspecified DDD (degenerative disc disease), lumbar Degeneration of lumbar or lumbosacral intervertebral disc Lumbar disc herniation with radiculopathy Displacement of lumbar intervertebral disc without myelopathy Foraminal stenosis of lumbar region Spinal stenosis, lumbar region, without neurogenic claudication GERMÁN (obstructive sleep apnea) Obstructive sleep apnea (adult) (pediatric) Gastroesophageal reflux disease without esophagitis Esophageal reflux Tobacco use disorder BPH with obstruction/lower urinary tract symptoms Hypertrophy of prostate with urinary obstruction and other lower urinary tract symptoms (LUTS) Anxiety Anxiety state, unspecified Spinal stenosis of lumbar region with neurogenic claudication Spinal stenosis, lumbar region, with neurogenic claudication documented in this encounter Care Teams Wildlife Biology Technician Relationship Specialty Start Date End Date Tasia Harding PA-C [address] [place] [id number] PCP - General Physician Rug Inspector Helper 12/22/22 documented as of this encounter
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
--- OUTSIDE RECORDS SUMMARY | 2023-06-13 15:15 | External Medical Summary | Summary of Care ---
Author Name Unknown Organization [facility] Address [address] [facility] [place] [address] Phone [phone] Care Team Providers Care Window Caser Name Role Phone Tasia Harding PA-C Primary Care Provider [phone]- [phone] Reason for Visit * Reason Onset Date Comments Test Results 05/27/2023 Encounter Details Date Type Department Care Team (Late st Contact Info) Description 05/27/2023 Telephone [facility] [address] [place] [address] Chrissy Talley MD [address] [place] [address] Test Results Allergies Active Allergy Reactions Criticality Noted Date Comments Paroxetine Hcl 03/17/2011 Delayed ejaculation Sertraline Hcl Diarrhea 04/17/2011 Patient has been taking for 3 weeks as of 06/13/16 with no problems documented as of this encounter (statuses as of 05/31/2023) Medications Medication Sig Dispensed Refills Start Date [...] as of this encounter (statuses as of 05/31/2023) Active Problems Problem Noted Date Diagnosed Date [...] as of this encounter (statuses as of 05/31/2023) Resolved Problems Problem Noted Date Diagnosed Date [...] as of this encounter (statuses as of 05/31/2023) Immunizations Name Administration Dates Next Due Pneumococcal [...] encounter Miscellaneous Notes * Telephone Encounter - Twila Chakraborty MED ASSIST - 05/31/2023 10:18 AM EST Faxed as requested * Telephone Encounter - Karen Robins OSA - 05/31/2023 8:33 AM EST Chanel from [facility] calling as they need the clearance for surgery on 06/05 to be faxed to them at [phone]. Please call if there is any issues. * Telephone Encounter - Flora Guillaume OSA - 05/28/2023 9:07 AM EST Spoke to [facility] who will be faxing records requested, please place results on Dr Talley's desk when they are received. Thank you * Telephone Encounter - Chrissy Talley MD - 05/27/2023 3:38 PM EST Please get preop labs/test results (done at [facility] last week) and place it on my desk documented in this encounter Plan of Treatment Upcoming Encounters Date Type Department Care Team (Late st Contact Info) Description 07/24/2023 2:40 PM EDT Office Visit Sleep Disorders, [facility] [address] [facility] [place] [address] Elizabeth Aparicio MD 400 [place] [address] Scheduled Procedures Name Priority Associated Diagnoses [...] filedocumented as of this encounter Care Teams Window Caser Relationship Specialty Start Date End Date Tasia Harding PA-C 21 [facility] [place] [address] PCP - General Physician Trust Evaluation Supervisor 12/22/22 documented as of this encounter
--- OUTSIDE RECORDS SUMMARY | 2023-06-13 15:15 | External Medical Summary | Summary of Care ---
Author Name Unknown Organization [facility] Address [address] [facility] [place] [address] Phone [phone] Care Team Providers Care Volunteer Fire Fighter Name Role Phone Tasia Harding PA-C Primary Care Provider [phone]- [phone] Reason for Visit * Reason Onset Date Comments Test Results 05/27/202306/01 FYI 05/27/2023 Encounter Details Date Type Department Care Team (Late st Contact Info) Description [facility]2023 [facility] [place] [address] [facility]issy Talley MD [facility] [place] [address] Test Results (06/01); [...] encounter Miscellaneous Notes * Telephone Encounter - Lauren Orta LPN - 06/01/2023 11:[address] Talley for pre-op, outside labs are in epic. Please advise. * Telephone Encounter - Latisha Manuel OSA - 06/01/2023 8:49 AM EST Chanel from [facility] called back to advise fax from yesterday was incomplete and clearance is still "pending test results" This is for a procedure scheduled for 06/05 Please refax with all necessary info [phone] Office can be reached at [phone] with any questions or concerns regarding this request or if unable to assist Thank you * Telephone Encounter - Twila Chakraborty MED ASSIST - 05/31/2023 10:18 AM EST Faxed as requested * Telephone Encounter - Karen Robins OSA - 05/31/2023 8:33 AM EST Chanel from [facility] calling as they need the clearance for surgery on 06/05 to be faxed to them at [phone]. Please call if there is any issues. * Telephone Encounter - Flora Guillaume OSA - 05/28/2023 9:07 AM EST Spoke to Tyler Conway who will be faxing records requested, please place results on Dr Talley's desk when they are received. Thank you * Telephone Encounter - Chrissy Talley MD - 05/27/2023 3:38 PM EST Please get preop labs/test results (done at [facility] last week) and place it on my desk documented in this encounter Plan of Treatment Upcoming Encounters Date Type Department Care Team (Late st Contact Info) Description 07/24/2023 2:40 PM EDT Office Visit Sleep Disorders, [facility] [address] [place] [address] Elizabeth Aparicio MD [address] [place] [address] Scheduled Procedures Name Priority Associated Diagnoses [...] filedocumented as of this encounter Care Teams Volunteer Fire Fighter Relationship Specialty Start Date End Date Tasia Harding PA-C [address] [address] PCP - General Physician [place]e 12/22/22 documented as of this encounter
--- OUTSIDE RECORDS SUMMARY | 2023-06-13 15:15 | External Medical Summary | Summary of Care ---
Author Name Unknown Organization [facility] Address [address] [facility] [address] Phone [phone] Care Team Providers Care Distributed Energy Systems Consultant Name Role Phone Tasia Harding PA-C Primary Care Provider [phone]- [phone] Reason for Visit * Reason Onset Date Comments Test Results 05/27/2023 FYI 05/27/2023 Encounter Details Date Type Department Care Team (Late st Contact Info) Description 05/27/2023 Telephone [facility] 21 [facility] [place] [address] Chrissy Talley MD [facility] [place] [address] Test Results; Allergies Active Allergy Reactions Criticality Noted Date [...] encounter Miscellaneous Notes * Telephone Encounter - Latisha Manuel OSA - 06/01/2023 8:49 AM EST Chanel from [facility] called back to advise fax from yesterday was incomplete and clearance is still "pending test results" This is for a procedure scheduled for 06/05 Please refax with all necessary info [phone] Office can be reached at [phone] with any questions or concerns regarding this request or if unable to assist Thank you * Telephone Encounter - Twila Chakraborty MED ASSIST - 05/31/2023 10:18 AM EST Faxed as requested * Telephone Encounter - Karen Robins OSA - 05/31/2023 8:33 AM EST Chanel from [facility] calling as they need the clearance for surgery on 06/05 to be faxed to them at [phone]. Please call if there is any issues. * Telephone Encounter - Flora Guillaume OSA - 05/28/2023 9:07 AM EST Spoke to Tyler Conway who will be faxing records requested, please place results on Dr Talley's desk when they are received. Thank you * Telephone Encounter - Chrsisy Talley MD - 05/27/2023 3:38 PM EST Please get preop labs/test results (done at [facility] last week) and place it on my desk documented in this encounter Plan of Treatment Upcoming Encounters Date Type Department Care Team (Late st Contact Info) Description 07/24/2023 2:40 PM EDT Office Visit Sleep Disorders, [address] [address] Elizabeth Aparicio MD 400 [place] [address] Scheduled Procedures Name Priority Associated Diagnoses [...] filedocumented as of this encounter Care Teams Distributed Energy Systems Consultant Relationship Specialty Start Date End Date Tasia Harding PA-C [address] [place] [address] PCP - General Physician Irrigation Teacher 12/22/22 documented as of this encounter
--- OUTSIDE RECORDS SUMMARY | 2023-06-13 15:15 | External Medical Summary | Summary of Care ---
Author Name Unknown Organization [facility] Address [address] [facility] [place] [address] Phone [phone] Care Team Providers Care Cloth Grader Name Role Phone Tasia Harding PA-C Primary Care Provider [phone]- [phone] Reason for Visit * Reason Onset Date Comments Test Results 05/27/202306/01 FYI 05/27/2023 Encounter Details Date Type Department Care Team (Late st Contact Info) Description 05/27/2023 [facility] 21 [facility] [place] [address] Chrissy Talley MD [address] [facility] [place] [address] Test Results (06/01); [...] encounter Miscellaneous Notes * Telephone Encounter - Adrianna Astudillo NRCMA - 06/01/2023 1:01 PM EST Addended note faxed to below noted number. * Telephone Encounter - Chrissy Talley MD - 06/01/2023 12:28 PM EST Note addended: patient is cleared for surgery. Please fax to ortho * Telephone Encounter - Lauren Orta LPN - 06/01/2023 11:[address] Talley for pre-op, outside labs are in epic. Please advise. * Telephone Encounter - Latisha Manuel OSA - 06/01/2023 8:49 AM EST Chanel from [facility] called back to advise fax from yesterday was incomplete and clearance is still "pending test results" This is for a procedure scheduled for 06/05 Please refax with all necessary info [phone] Office can be reached at [phone] with any questions or concerns regarding this request or if unable to assist Thank you * Telephone Encounter - Twila Chakraborty MED ASSIST - 05/31/2023 10:18 AM EST Faxed as requested * Telephone Encounter - Karen Robins OSA - 05/31/2023 8:33 AM EST Chanel from [facility] calling as they need the clearance for surgery on 06/05 to be faxed to them at [phone]. Please call if there is any issues. * Telephone Encounter - Flora Guillaume OSA - 05/28/2023 9:07 AM EST Spoke to [facility] who will be faxing records requested, please place results on Dr Talley's desk when they are received. Thank you * Telephone Encounter - Chrissy Talley MD - 05/27/2023 3:38 PM EST Please get preop labs/test results (done at [facility] last week) and place it on my desk documented in this encounter Plan of Treatment Upcoming Encounters Date Type Department Care Team (Late st Contact Info) Description 07/24/2023 2:40 PM EDT Office Visit Sleep Disorders, [facility] [address] [place] [address] Elizabeth Aparicio MD [address] [place] [address] Scheduled Procedures Name Priority Associated Diagnoses [...] filedocumented as of this encounter Care Teams Cloth Grader Relationship Specialty Start Date End Date Tasia Harding PA-C [address] [phone] PCP - General Physician Picture Frame Maker 12/22/22 documented as of this encounter
--- OUTSIDE RECORDS SUMMARY | 2023-06-13 15:15 | External Medical Summary | Summary of Care ---
Author Name Unknown Organization [facility] Address [address] [place] [address] Phone [phone] Care Team Providers Care Char Conveyor Tender Name Role Phone Tasia Harding PA-C Primary Care Provider [phone] Reason for Visit * Reason Onset Date Comments Advice 05/30/2023 Encounter Details Date Type Department Care Team (Late st Contact Info) Description 05/30/2023 Telephone Sleep Disorders, [facility] 400 [place] [address] [facility], Nurse Sleep Disorders [address] [place] [address] Advice Allergies Active Allergy Reactions [...] 9:05 AM EDT Sexual Orientation Straight 09/03/2018 9 :05 AM EDT Job Start Date Occupation Industry Not on file Not on file Not on file documented as of this encounter Miscellaneous Notes * Telephone Encounter - Teri Stein OSA [...] 2:40 PM EDT Office Visit Sleep Disorders, [address] [place] [address] Elizabeth Aparicio MD [address] [place] [address] Scheduled Procedures Name Priority Associated Diagnoses Date/Ti [...] filedocumented as of this encounter Care Teams Char Conveyor Tender Relationship Specialty Start Date End Date Tasia Harding PA-C [address] [facility] [place] [id number] PCP - General Physician Balloon Artist 12/22/22 documented as of this encounter
--- OUTSIDE RECORDS SUMMARY | 2023-06-13 15:16 | External Medical Summary | Summary of Care ---
Author Name Unknown Organization [facility] Address [address] [facility] [place] [address] Phone [phone] Care Team Providers Care Cardiac Specialist Name Role Phone Tasia Harding PA-C Primary Care Provider [phone] Reason for Visit * Reason Comments pre-op exam * Auth/Cert Specialty Diagnoses / Procedures Referred By Controdriguez t Referred To Contact Referral ID Status Reason Start Date Expiration Date Visits Re quested Visits Authorized [id number] Encounter Details Date Type Department Care Team (Late st Contact Info) Description 05/25/2023 1:40 PM EST Office Visit [facility] [address] [place] [phone] Chrissy Talley MD [address] [place] [phone] Preoperative clearance*; DDD (degenerative disc disease), lumbar; [...] as of this encounter (statuses as of 05/27/2023) Medications Medication Sig Dispensed Refills Start Date End Date Status CPAP every night at bedtime. Auto 5-15 cm 0 Active Finasteride 5 MG Oral Tablet (Proscar) Take 1 Tablet by mouth in the morning. 90 Tablet 6 11/16/2022 Active Tamsulosin HCl 0.4 MG Oral Capsule (Flomax) Take 1 Capsule by mouth in the morning. 90 Capsule 0 01/26/2023 Active Omeprazole 20 MG Oral Capsule Delayed [...] before bedtime. 90 Tablet 5 05/25/2023 Active Nicotine 21 MG/24HR Transdermal Patch 24 Hour [...] as of this encounter (statuses as of 05/27/2023) Active Problems Problem Noted Date Diagnosed Date [...] as of this encounter (statuses as of 05/27/2023) Resolved Problems Problem Noted Date Diagnosed Date [...] as of this encounter (statuses as of 05/27/2023) Immunizations Name Administration Dates Next Due Pneumococcal [...] and are significant for: labs done at [facility], results are not available today EKG by my review is significant for: Stress ECHO 10/13/2022 Interpretation Summary 1. Negative [...] 6 minutes 25 seconds on a standard Arvi protocol. Stress Findings The stress EKG response [...] be cleared for surgery pending lab results 2. DDD (degenerative disc disease), lumbar 3. [...] in this encounter Nursing Notes * Adrianna Astudillo NRCMA - 05/25/2023 1:47 PM EST Chief Complaint Patient presents with pre-op exam documented in this encounter Plan of Treatment Upcoming Encounters Date Type Department Care Team (Late st Contact Info) Description 06/06/2023 9:40 AM EST Office Visit [facility] [address] [facility] [place] [place] [phone] Tasia Harding PA-C [address] [facility] [place] [address] 07/24/2023 2:40 PM EDT Office Visit Sleep [facility], [facility] [address] [facility] [place] [phone] Elizabeth Aparicio MD [address] [facility] [place] [address] Scheduled Procedures Name Priority Associated Diagnoses Date/Ti [...] claudication documented in this encounter Care Teams Cardiac Specialist Relationship Specialty Start Date End Date Tasia Harding PA-C [address] [place] [id number] PCP - General Physician Business Job Titles 12/22/22 documented as of this encounter
--- OUTSIDE RECORDS SUMMARY | 2023-06-13 15:16 | External Medical Summary | Summary of Care ---
Author Name Unknown Organization [facility] Address [address] [facility] [place] [address] Phone [phone] Care Team Providers Care Model And Mold Maker Plaster Name Role Phone Tasia Harding PA-C Primary Care Provider [phone] Encounter Details Date Type Department Care Team (Late st Contact Info) Description 05/28/2023 Telephone [facility] [address] [place] [address] Adelita Serrano CRNP [address] [facility] [place] [address] Allergies Active Allergy Reactions Criticality Noted Date Comments Paroxetine Hcl 03/17/2011 Delayed ejaculation Sertraline Hcl Diarrhea 04/17/2011 Patient has been taking for 3 weeks as of 06/13/16 with no problems documented as of this encounter (statuses as of 05/28/2023) Medications Medication Sig Dispensed Refills Start Date [...] as of this encounter (statuses as of 05/28/2023) Active Problems Problem Noted Date Diagnosed Date [...] disorder with depressed mood 09/30/19 11 Overview: 5/189/11: increased to 40mg/d Citalopram 20mg/d started 07/2010: Devi documented as of this encounter (statuses as of 05/28/2023) Resolved Problems Problem Noted Date Diagnosed Date [...] as of this encounter (statuses as of 05/28/2023) Immunizations Name Administration Dates Next Due Pneumococcal [...] Miscellaneous Notes * Telephone Encounter - Latisha Roger OSA - 05/28/2023 2:52 PM EST Pt is scheduled for 05/29/23 GERMÁN Davis * Telephone Encounter - Latisha Roger OSA - 05/28/2023 9:59 AM EST 05/28 LMOM to call and schedule appt for pre op clearance. GERMÁN Davis * Telephone Encounter - Adelita Serrano CRNP - 05/28/2023 9:42 AM EST This patient will need re-evaluated in the cardiology clinic. He can be offered the next available opening with any provider for preoperative cardiac clearance Thank You RAKAN Cobos * Telephone Encounter - Latisha Roger OSA - 05/28/2023 8:17 AM EST [facility] sent pre op labs and asked for them to be reviewed and to give final preop clearance. He has only seen you and that was 10/11/2022. Surgery is set for 06/05/2023. Papers domonique Ureña's desk. GERMÁN Davis documented in this encounter Plan of Treatment Upcoming Encounters Date Type Department Care Team (Late st Contact Info) Description 05/29/2023 10:30 AM EST Office [facility] [address] [facility] [place] [address] Ruba Carmichael PA-C [address] [facility] [address] 06/06/2023 9:40 AM EST Office Visit [facility] [phone] Tasia Harding PA-C [address] [facility] [place] [address] 07/24/2023 2:40 PM EDT Office Visit Sleep Disorders, [facility] [address] [facility] [place] [address] Elizabeth Aparicio MD 400 [place] [address] Scheduled Procedures Name Priority Associated Diagnoses Date/Ti [...] filedocumented as of this encounter Care Teams Model And Mold Maker Plaster Relationship Specialty Start Date End Date Tasia Harding PA-C [address] [phone] PCP - General Physician Raspberry Checker 12/22/22 documented as of this encounter
--- OUTSIDE RECORDS SUMMARY | 2023-06-13 15:16 | External Medical Summary | Summary of Care ---
Author Name Unknown Organization [facility] Address [address] [facility] [place] [address] Phone [phone] Care Team Providers Care Honing Machine Set Up Operator Tool Name Role Phone Tasia Harding PA-C Primary Care Provider Encounter Details Date Type Department Care Team (Late st Contact Info) Description 05/25/2023 Orders Only [facility] [place] [phone] Tasia Harding PA-C [facility] [place] [phone] Allergies Active Allergy Reactions Criticality Noted Date Comments Paroxetine Hcl 03/17/2011 Delayed ejaculation Sertraline Hcl Diarrhea 04/17/2011 Patient has been taking for 3 weeks as of 06/13/16 with no problems documented as of this encounter (statuses as of 05/25/2023) Medications Medication Sig Dispensed Refills Start Date [...] Omeprazole 20 MG Oral Capsule Delayed Release (PriLOSEC)Indication s:Gastro-esophageal reflux disease without esophagitis TAKE 1 CAPSULE BY MOUTH EVERY DAY 90 Capsule 3 02/06/2023 Active tiZANidine HCl 4 MG Oral Tablet (Zanaflex) TAKE 1 TABLET BY MOUTH AT BEDTIME NEEDED FOR MUSCLE SPASMS. 30 Tablet 0 04/18/2023 Active Meloxicam 15 MG Oral Tablet (Mobic)Indications:S anai stenosis of lumbar region with neurogenic claudication Take 1 Tablet by mouth daily as needed (Pain). 90 Tablet 1 04/18/2023 Active buPROPion HCl ER (SR) 150 MG Oral Tablet Extended Release 12 Hour (Wellbutrin SR)Indications:Tobac co use disorder,Encounter for smoking cessation counseling Take 1 Tablet by mouth in the morning and 1 Tablet before bedtime. 180 Tablet 1 04/18/2023 Active Nicotine 21 MG/24HR Transdermal Patch 24 Hour (Nicoderm CQ)Indications:Tobac co use disorder,Encounter for smoking cessation counseling Place 1 Patch over 24 hours topically on the skin in the morning. On upper body/upper arm, change once a day for 6 weeks.. 42 Patch 0 04/18/2023 Active Gabapentin 600 MG Oral Tablet (Neurontin)Indicatio ns:Spinal stenosis of lumbar region with neurogenic claudication Take 1 Tablet by mouth in the morning and 1 Tablet at noon and 1 Tablet before bedtime. 90 Tablet 5 04/23/2023 Active Hospital, Clinic, or Other Facility Administered Medication Ordered Dose Route Frequency Start Date End Date Status Albuterol Sulfate (Proventil) (2.5 MG/3ML) 0.083% inhalation solution 2.5 mgIndications:Dyspnea on exertion,Chronic chest pain 2.5 mg NEBULIZER ONCE PRN 10/18/2022 10/18/2023 Active documented as of this encounter (statuses as of 05/25/2023) Active Problems Problem Noted Date Diagnosed Date [...] as of this encounter (statuses as of 05/25/2023) Resolved Problems Problem Noted Date Diagnosed Date [...] as of this encounter (statuses as of 05/25/2023) Immunizations Name Administration Dates Next Due Pneumococcal [...] Answer Date Recorded PHQ Adult Total Score 24 04/18/2023 Hunger Vital Sign Answer Date Recorded Within [...] Description 05/25/2023 1:40 PM EST [facility] [phone] Chrissy Talley MD [facility] [address] 06/06/2023 9:40 AM EST Office Visit [facility] [address] [place] [phone] Tasia Harding PA-C [facility] [address] 07/24/2023 2:40 PM EDT [facility] [address] [place] [place] [address] Elizabeth Aparicio MD [address] [facility] [place] [address] Scheduled Procedures Name Priority Associated [...] fire each visit until score < 10) 04/19/2023 04/18/2023 Diabetes Screening 03/01/2026 05/24/2023, 1 , 10/13/2022, Additional history exists [...] Procedure Name Priority Date/Time Associated Diagnosis Comments CHEMISTRY-OUTSIDE Routine 05/24/2023 documented in this encounter Results * CHEMISTRY-OUTSIDE (05/24/2023) Not all results display below - see scan for full detail OUTSIDE LAB (SEE SCANNED REPORT) Comment:SCAN INCLUDES: CBCD, PT/INR, PTT, BMP, UA CREATININE-OUTSI DE LAB 0.91 0.6 - 1.4 MG/DL OUTSIDE LAB (SEE SCANNED REPORT) EGFR-OUTSIDE LAB 99.3 ML/MIN OUT SIDE LAB (SEE SCANNED REPORT) POTASSIUM-OUTSID E LAB 3.9 3.5 - 5.1 MMOL/L OUTSIDE LAB (SEE SCANNED REPORT) GLUCOSE-OUTSIDE LAB 86 70 - 99 MG/DL OUTSIDE LAB (SEE SCANNED REPORT) HOURS FASTING OUTSID E LAB (SEE SCANNED REPORT) TRIGLYCERIDES-OU TSIDE LAB OUTSIDE LAB (SEE SCANNED REPORT) CHOLESTEROL-OUTS K[facility]AN LAB OUTSIDE LAB (SEE SCANNED REPORT) HDL-OUTSIDE LAB OUTS K[facility]AN LAB (SEE SCANNED REPORT) CHOL/HDL RATIO-OUTSIDE LAB OUTSIDE LAB (SEE SCANNED REPORT) LDL (CALCULATED)-OUT SIDE LAB OUTSIDE LAB (SEE SCANNED REPORT) LDL (DIRECT MEASURE)-OUTSIDE LAB OUTSIDE LAB (SEE SCANNED REPORT) HEMOGLOBIN, F0X-LXVASHP LAB OUTSIDE LAB (SEE SCANNED REPORT) PHOSPHORUS-OUTSI DE LAB OUTSIDE LAB (SEE SCANNED REPORT) PTH-OUTSIDE LAB OUTS KARAN LAB (SEE SCANNED REPORT) MICROALBUMIN RATIO-OUTSIDE LAB OUTSIDE LAB (SEE SCANNED REPORT) PROTEIN, UA-OUTSIDE LAB NEGATIVE NEGATIVE OUTSIDE LAB (SEE SCANNED REPORT) HEMOGLOBIN-OUTSI DE LAB 15.3 14.0 - 18.0 G/DL OUTSIDE LAB (SEE SCANNED REPORT) 05/24/2023 Kalyan Danielson DO LABORATORY OUTSIDE LAB (SEE SCANNED REPORT) documented in this encounter Care Teams Honing Machine Set Up Operator Tool Relationship Specialty Start Date End Date Tasia Harding PA-C [address] [place] [phone] PCP - General Physician Barrel Lathe Operator Inside 12/22/22 documented as of this encounter
[2023-06-13] MEDS: GABAPENTIN 600 MG TAB PO SCH ×2 (15:19→19:50)
[2023-06-13] MEDS: LACTATED RINGER'S 1,000 ML IV SCH ×2 (15:20→20:58)
[2023-06-13] MEDS: oxyCODONE HCL IR 5 MG TAB (IMMEDIATE RELEASE) PO PRN ×2 (15:24→19:48)
[2023-06-13] MEDS: ceFAZolin 2000MG 2,000 MG/15 ML SYR IV SCH (17:58)
[2023-06-13] MEDS: buPROPion SR 150 MG TABCR PO SCH (19:51)
[2023-06-13] MEDS: DOCUSATE SODIUM/SENNA 50/8.6MG TAB PO SCH (19:51)
[2023-06-13] MEDS: HYDROmorphone INJ 1 MG/ML SYRINGE IV PRN (21:20)
[2023-06-14] MEDS: oxyCODONE HCL IR 5 MG TAB (IMMEDIATE RELEASE) PO PRN ×4 (00:41→20:45)
[2023-06-14] MEDS: HYDROmorphone INJ 1 MG/ML SYRINGE IV PRN ×2 (01:27→21:45)
[2023-06-14] MEDS: ceFAZolin 2000MG 2,000 MG/15 ML SYR IV SCH (01:30)
[2023-06-14] MEDS: POLYETHYLENE (MIRALAX) 17 GM PACK PO SCH ×3 (06:23→17:44)
[2023-06-14 06:39] LABS: Basophils # (auto) 0.04 K/uL (0.00-0.20); Basophils % (auto) 0.3 %; Eosinophils # (auto) 0.03 K/uL (0.00-0.50); Eosinophils % (auto) 0.2 %; Hematocrit (blood only) 39.9 % (42.0-52.0); Hemoglobin 13.6 g/dl (14.0-18.0); Immature Granulocytes # (auto) 0.08 K/uL (0.01-0.20); Immature Granulocytes % (auto) 0.5 %; Lymphocytes # (auto) 2.37 K/uL (1.20-3.40); Lymphocytes % (auto) 15.6 %; Mean Corpuscular Hemoglobin 28.9 pg (25.0-34.0); Mean Corpuscular Hgb Conc 34.1 g/dL (32.0-36.0); Mean Corpuscular Volume 84.7 fL (80.0-100.0); Monocytes # (auto) 1.33 K/uL (0.11-0.59); Monocytes % (auto) 8.8 %; Neutrophils # (auto) 11.33 K/uL (1.40-6.50); Neutrophils % (auto) 74.6 %; Platelet Count 241 K/uL (130-400); RDW Coefficient of Variation 13.1 % (11.5-14.5); RDW Standard Deviation 40.3 fL (36.4-46.3); Red Blood Count 4.71 M/uL (4.70-6.10); White Blood Count 15.18 K/ul (4.8-10.8)
[2023-06-14 07:06] LABS: BUN Creatinine Ratio 17.3 (10-20); Calcium 9.2 mg/dl (8.6-10.3); Creatinine Clr Calc Pharmacy 141.4 ml/min; Est GFR (African American) 121.8 ml/min; Est GFR (Non-African American) 105.1 ml/min
[2023-06-14] MEDS: dexAMETHasone 6 MG in SYRINGE 0 ML IV SCH (07:19)
[2023-06-14] MEDS: PANTOprazole 40 MG TAB PO SCH (07:19)
[2023-06-14] MEDS: buPROPion SR 150 MG TABCR PO SCH ×2 (07:19→20:44)
[2023-06-14] MEDS: GABAPENTIN 600 MG TAB PO SCH ×3 (07:19→20:44)
--- NOTE | 2023-06-14 08:27 | Orthopedic Progress Note ---
Date of Service June 14, 2023 Assessment & Plan (1) Neurogenic claudication due to lumbar spinal stenosis: Plan: We will initiate physical therapy today monitor his DELANEY operatively discharge home in the next few days. Admission and Anticipated Discharge Date Admission Date: June 13, 2023 Subjective Patient's back pain is controlled leg pain markedly improved Physical Exam Physical Exam: Patient is comfortable. Is good strength testing. Results & Data Vital Signs (Past 12 Hours) Vital Signs Temp Pulse Resp BP Pulse Ox O2 Del Method O2 Flow Rate 06/14/23 08:00 Room Air 06/14/23 07:55 37.4 C 96 H 16 115/71 96 Room Air 06/14/23 03:10 36.7 C 74 18 114/72 98 Nasal Cannula 2 06/14/23 00:42 36.7 C 93 H 14 129/77 96 Nasal Cannula 2 06/13/23 20:56 36.7 C 75 18 120/78 97 Nasal Cannula 2 Queries Orthopedic Spine Obesity: Yes
[2023-06-14] MEDS ORDERED: CYCLOBENZAPRINE HCL 10 MG TAB PO PRN (17:15)
[2023-06-14] MEDS: DOCUSATE SODIUM/SENNA 50/8.6MG TAB PO SCH (20:45)
[2023-06-15] MEDS: POLYETHYLENE (MIRALAX) 17 GM PACK PO SCH ×4 (00:09→17:07)
[2023-06-15] MEDS: dexAMETHasone 6 MG in SYRINGE 0 ML IV SCH (07:21)
[2023-06-15] MEDS: PANTOprazole 40 MG TAB PO SCH (07:21)
[2023-06-15] MEDS: buPROPion SR 150 MG TABCR PO SCH ×2 (07:21→20:42)
[2023-06-15] MEDS: GABAPENTIN 600 MG TAB PO SCH ×3 (07:21→20:42)
--- NOTE | 2023-06-15 08:15 | Orthopedic Progress Note ---
Date of Service June 15, 2023 Assessment & Plan (1) Neurogenic claudication due to lumbar spinal stenosis: Plan: This time we will maintain the DELANEY drain another 24 hours to ensure he does not develop a hematoma. He still requiring medications for back spasms. Will continue with physical therapy today and anticipate discharge home tomorrow. Admission and Anticipated Discharge Date Admission Date: June 13, 2023 Subjective Back pain controlled leg pain improved Physical Exam Physical Exam: Patient is in the chair at the bedside. Patient has good strength testing. Results & Data Vital Signs (Past 12 Hours) Vital Signs Temp Pulse Pulse Resp BP Pulse Ox O2 Del Method 06/15/23 07:59 Room Air 06/15/23 07:58 37.4 C 98 H 16 128/80 94 Room Air 06/15/23 07:36 37.5 C 94 H 16 125/82 91 Room Air 06/15/23 00:04 99 Nasal Cannula 06/15/23 00:00 93 Room Air 06/14/23 20:52 37.2 C 109 H 18 138/87 97 Room Air O2 Flow Rate 06/15/23 07:59 06/15/23 07:58 06/15/23 07:36 06/15/23 00:04 2 06/15/23 00:00 06/14/23 20:52 Queries Orthopedic Spine Obesity: Yes
[2023-06-15] MEDS: oxyCODONE HCL IR 5 MG TAB (IMMEDIATE RELEASE) PO PRN ×2 (11:29→20:41)
[2023-06-15] MEDS: DOCUSATE SODIUM/SENNA 50/8.6MG TAB PO SCH (20:42)
[2023-06-15] MEDS: HYDROmorphone INJ 1 MG/ML SYRINGE IV PRN (22:38)
[2023-06-16] MEDS: oxyCODONE HCL IR 5 MG TAB (IMMEDIATE RELEASE) PO PRN ×2 (04:14→11:27)
[2023-06-16] MEDS: HYDROmorphone INJ 1 MG/ML SYRINGE IV PRN (07:37)
[2023-06-16] MEDS: GABAPENTIN 600 MG TAB PO SCH (08:49)
[2023-06-16] MEDS: dexAMETHasone 6 MG in SYRINGE 0 ML IV SCH (08:49)
[2023-06-16] MEDS: buPROPion SR 150 MG TABCR PO SCH (08:49)
[2023-06-16] MEDS: PANTOprazole 40 MG TAB PO SCH (08:49)
--- NOTE | 2023-06-16 10:22 | Discharge Summary ---
Date of Service June 16, 2023 Admission HPI Per Admitting Provider This is a 48-year-old male who presents with chronic persistent back and leg pain after failing since course of nonoperative care is here for surgical intervention. Principal Diagnosis Lumbar spinal stenosis with radiculopathy Discharge Data Allergies Allergy/AdvReac Type Severity Reaction Status Date / Time celecoxib [From Celebrex] Allergy Unknown Hives Verified 06/13/23 09:33 Procedures Performed Operation Date: 06/13/23 10:45 Actual Procedures p L5-S1 Decompression and Fusion, Spinal Cord Monitoring, Placement of Interbody L5-S1 (Not Applicable) - Kalyan Danielson DO Ordered Studies 06/13/23 10:45 FL lumbar spine 2-3V Routine Hospital Course (1) Neurogenic claudication due to lumbar spinal stenosis: Patient will limited motion of his intolerance I will send the orthopedic for postoperative. Postoperatively he progressed appropriately. Pain well-controlled. Excellent strength testing. DELANEY drain decreasing appropriately. Simply discharged home. Discharge orders and instructions found in chart for further review. Total Time Total Time Spent Total Time Spent (In Minutes): 20 minutes Discharge Plan Discharge Items Patient Disposition: Home - Self-Care Reason For Visit: Lumbar Disc Herniation with Radiculopathy Discharge Diagnosis: Lumbar spinal stenosis with radiculopathy Activity: As commented below Non-emergency contact: Primary Care Provider Call non-emergency contact if: you have any medication questions Follow-up/Referrals: PCP,JOSE [Primary Care Provider] - Diet: Regular Addtl Attending Provider Instructions: ACTIVITY RECOMMENDATIONS: SELF CARE INSTRUCTIONS AFTER THORACIC/LUMBAR FUSIONS 1. You may walk to your tolerance. It is good exercise for your legs and back. Expect some back and intermittent leg aches and pains. 2. You may perform "counter-top" level activities (make a sandwich, daysi with a project, etc.). 3. No bending or lifting of more than 10 pounds or back twisting of any nature (roll like a log when turning in bed). 4. You may ride in a car for 20-30 minutes at a time. No driving until after your first visit with your doctor. 5. Frequent changes of position and restricting sitting to 30 minutes at a time will help limit the amount of back spasms and stiffness you may experience. 6. You may discontinue the use of ambulatory aids (cane, crutches, etc.) once your strength and confidence allow. 7. You may cisco network engineer the shower and let water strike your incision when you arrive home at least once daily. Do not take a tub bath, sit in a hot tub or go into a swimming pool until after your first recheck in the office. SPECIAL CARE INSTRUCTIONS: VERY IMPORTANT TO READ AND REVIEW A. Your surgical incision has been closed with a cosmetic suture under the skin that will dissolve in about 6 weeks. In 14 days, you can use a pair of clean scissors and cut the suture that is left outside of the skin at the ends of your incision. 1. The small skin tapes can be removed 7 days after surgery if they have not fallen off by that point. 2. You may keep the wound open to air as much as possible to promote healing after post-op day number 5 unless told otherwise by your doctor. 3. If you think the wound looks like it is becoming infected (redness or worsening drainage) and/or you are experiencing fever, chill or worsening back pain and muscle spasms, contact the office so that we may evaluate you as soon as possible. B. Complications are uncommon, but please contact us if you have any signs or symptoms of: 1. wound infection (fever higher than 102.5 degrees F, redness, separation of wound, drainage, or increasing pain from the incision) 2. blood clots in legs (pain, swelling, redness and warmth in legs) 3. urinary tract infection (fever higher than 102.5 degrees F, burning upon urination or increased frequency of urination) 4. nerve problems (inability to walk on your toes or heels, numbness, loss of bowel or bladder control) 5. any other symptoms that concern you C. Please call the office at if you have any concerns or questions about your operation or recovery. D. No smoking! Smoking drastically decreases the chance of a solid fusion. E. Do not take any anti-inflammatory medications (Indocin, Advil, Motrin, Aspirin, Naprosyn, etc.) as these may inhibit the chance of a solid fusion. Tylenol is okay to take for pain. MANAGING PAIN AFTER SPINAL SURGERY 1. Narcotic medication is intended for short-term use and will be provided for surgical pain. Surgical pain usually lasts for a period of 4-6 weeks. Narcotic medication includes Percocet, Vicodin, Darvocet, Tylenol #3 or Lortab. 2. Longer-term pain is more appropriately treated with non-narcotic medication such as Tylenol ES. 3. Muscle spasm is not appropriately treated with narcotics. Muscle relaxers such as Soma, Flexeril or Skelaxin can be used along with Tylenol ES. 4. Remember that we all live with some "aches and pains". This is not unusual or uncommon after an injury or as we get older. a. Back pain is expected and may include muscle spasms for 4 to 6 weeks after surgery. The pain should gradually improve. If the pain worsens for no apparent reason, please contact the office. b. Intermittent leg pain may also be experienced and should not be concerned about unless it worsens for no apparent reason. If so, please contact the office. 5. We will provide appropriate medication within the normal guidelines of their prescribed use. We will also be very cautious and aware of potential abuse and extended duration of patients' medication needs. a. Pain medications are for your comfort and to assist with sleep and rest so that the tissue can heal. They are not provided in order to return to normal activity and should not be used through the day. To do so or worsening pain at night can result from ongoing tissue damage and development of tolerance to the prescribed medicine. 6. Please allow 2-3 days to process refills. Prescriptions will not be mailed but must be picked up at the office. FOLLOW UP VISIT: Keep your scheduled follow-up appointment. Any questions, please call the office at . Pending Studies at Discharge: No Stand-Alone Forms: My [facility], Smoking Cessation Medications and DC Order Prescriptions: New tramadol 50 mg tablet 50 mg PO Q6H PRN (Reason: pain, moderate) Qty: 30 0RF oxycodone 5 mg tablet 5 mg PO Q6H PRN (Reason: pain) Qty: 30 0RF Continued bupropion HCl [Wellbutrin SR] 150 mg Tablet Sustained-Release 12 Hr 150 mg PO BID meloxicam 15 mg Tablet 15 mg PO QAM gabapentin 400 mg Capsule 600 mg PO TID omeprazole 20 mg Tablet,Delayed Release (Dr/Ec) 20 mg PO QAM Discharge Orders: Discharge Order (Routine); Ordered 06/16/23 Ordered By: Kalyan Danielson Admission Data Admit Date/Time: 06/13/23 14:18 Attending Provider: Kalyan Danielson Admit Provider: Kalyan Danielson Primary Care Provider: PCPJOSE
== END 2023-06-16 11:57 | disposition home or self-care (01) ==
LOC: ASU 09:12 → INTOOBSV 14:18 → 3E 14:18